=== PATIENT | female | born 1985 | race Two or more races ===

== ENCOUNTER → 2018-05-12 | Emergency (ER) | payer OTHER ==
[~2018-05-12] VITALS: Ht 160 cm; Wt 84.8 kg
[~2018-05-12] MED LIST: TENCON 50-3251 EACH PO
== END | disposition home or self-care (01) ==
LOC: ER 23:34
DX: G43.909 Migraine, unspecified, not intractable, without status migrainosus (principal)

== ENCOUNTER 2018-06-28 15:24 | Outpatient (CLI) | payer OTHER | END 2018-06-28 15:29 | disposition home or self-care (01) | LOC: RAD 15:24 | DX: M54.5 Low back pain (principal) ==

== ENCOUNTER → 2019-03-29 | Outpatient (CLI) | payer OTHER | END | disposition home or self-care (01) | LOC: RAD 15:40 | DX: M54.5 Low back pain (principal) ==

== ENCOUNTER 2019-12-09 19:29 | Emergency (ER) | payer OTHER ==
[~2019-12-09] VITALS: Ht 160 cm; Wt 82.6 kg
== END 2019-12-09 22:17 | disposition home or self-care (01) ==
LOC: ER 19:29
DX: S60.221A Contusion of right hand, initial encounter (principal); W10.8XXA Fall (on) (from) other stairs and steps, initial encounter; Y93.89 Activity, other specified; Y92.488 Other paved roadways as the place of occurrence of the external cause; Y99.8 Other external cause status

== ENCOUNTER 2020-01-02 15:31 | Outpatient (CLI) | payer OTHER | END 2020-01-02 15:38 | disposition home or self-care (01) | LOC: RAD 15:31 | PROVIDERS: ATTEND Orthopaedic Surgery | DX: S60.221D Contusion of right hand, subsequent encounter (principal) ==

== ENCOUNTER → 2020-05-22 | Outpatient (CLI) | payer OTHER | END | disposition home or self-care (01) | LOC: RAD 12:00 | PROVIDERS: ATTEND General Practice | DX: M77.31 Calcaneal spur, right foot (principal); M54.5 Low back pain; M25.571 Pain in right ankle and joints of right foot ==

== ENCOUNTER 2021-02-17 17:17 | Emergency (ER) | payer OTHER ==
[~2021-02-17] VITALS: Ht 160 cm; Wt 78.9 kg
[2021-02-17] MEDS ORDERED: MEDROLPACK PO (18:54)
[2021-02-17] MEDS ORDERED: NORFLEX100MG PO (18:54)
[2021-02-17] MEDS ORDERED: CELEBREX200MG PO (18:54)
== END 2021-02-17 19:05 | disposition home or self-care (01) ==
LOC: ER 17:17
DX: M54.5 Low back pain (principal)

== ENCOUNTER 2022-09-03 20:31 | Emergency (ER) | payer OTHER ==
[~2022-09-03] VITALS: Ht 160 cm; Wt 81.6 kg
[~2022-09-03 20:31] MED LIST changes: +CELEBREX200MG PO; +MEDROLPACK PO; +NORFLEX100MG PO
[2022-09-03] MEDS ORDERED: DICLOFENAC SODI75 MG PO (21:24)
[2022-09-03] MEDS ORDERED: MEDROLPACK PO (21:24)
[2022-09-03] MEDS ORDERED: NORFLEX100MG PO (21:24)
== END 2022-09-03 22:01 | disposition home or self-care (01) ==
LOC: ER 20:31
DX: M54.59 Other low back pain (principal); M54.9 Dorsalgia, unspecified

== ENCOUNTER 2022-09-11 03:19 | Emergency (ER) | payer OTHER ==
[~2022-09-11] VITALS: Ht 160 cm; Wt 81.6 kg
[~2022-09-11 03:19] MED LIST changes: +DICLOFENAC SODI75 MG PO
== END 2022-09-11 08:59 | disposition home or self-care (01) ==
LOC: ER 03:19
DX: M54.59 Other low back pain (principal)

== ENCOUNTER 2023-04-11 15:09 | Emergency (ER) | payer OTHER ==
[~2023-04-11] VITALS: Ht 160 cm; Wt 85.3 kg
== END 2023-04-11 17:58 | disposition home or self-care (01) ==
LOC: ER 15:09
DX: M54.30 Sciatica, unspecified side (principal)

== ENCOUNTER 2023-06-04 15:07 | Emergency (ER) | payer OTHER ==
[~2023-06-04] VITALS: Ht 162.6 cm; Wt 68.0 kg
[2023-06-04 18:17] LABS: HEMATOCRIT 36.4 % (36.0-45.00); HEMOGLOBIN 12.1 g/dL (12.0-15.00); MEAN CELL VOLUME 74.7 fL (80.00-100.00); MEAN CORPUSCULAR HEMOGLOBIN 24.9 pg (27.00-32.0); MEAN CORPUSCULAR HGB CONC 33.3 g/dl (32.0-36.0); PLATELET COUNT 282 K/uL (150-450); RED BLOOD COUNT 4.87 M/uL (4.00-6.00); RED CELL DISTRIBUTION WIDTH 16.4 % (11.5-14.5)
[2023-06-04 18:49] LABS: ALBUMIN 3.7 gm/dL (3.4-5.0); BILIRUBIN TOTAL 0.29 mg/dL (0.3-1.2); CALCIUM 9.2 mg/dL (8.5-10.1); CREATININE SERUM 0.78 mg/dL (0.55-1.02); GFR 83.57; GLOBULINA 4.7 G/DL (2.4-3.5); POTASSIUM 3.07 mEq/L (3.5-5.1); TOTAL PROTEIN 8.4 gm/dL (6.4-8.2)
[2023-06-04 19:12] LABS: URINE APPEARANCE Clear; URINE BILIRRUBIN Negative (NEGATIVE); URINE BLOOD Small; URINE COLOR Yellow; URINE GLUCOSE Negative (NEGATIVE); URINE LEUKOCYTE Trace; URINE NITRATE Negative; URINE PROTEIN Negative (NEGATIVE)
[2023-06-04 19:16] LABS: URINE BACTERIA 574.3 uL (0.0-1933); URINE EPITHELIAL CELLS 6.3 uL (0.0-38.8); URINE RBC 14.6 uL (0.0-20.8); URINE WBC 17.4 uL (0.0-23.2)
== END 2023-06-04 21:15 | disposition home or self-care (01) ==
LOC: ER 15:08
PROVIDERS: General Practice
DX: B34.9 Viral infection, unspecified (principal); Z20.822 Contact with and (suspected) exposure to COVID-19; M54.31 Sciatica, right side; M62.830 Muscle spasm of back

== ENCOUNTER 2023-06-21 09:10 | Emergency (ER) | payer OTHER ==
[~2023-06-21] VITALS: Ht 160 cm; Wt 84.8 kg
== END 2023-06-21 13:00 | disposition home or self-care (01) ==
LOC: ER 09:10
DX: M54.9 Dorsalgia, unspecified (principal); M62.838 Other muscle spasm

== ENCOUNTER 2023-07-14 22:49 | Emergency (ER) | payer OTHER ==
[~2023-07-14] VITALS: Ht 160 cm; Wt 84.8 kg
[2023-07-15] MEDS ORDERED: ORPHENADRINE CITRATE 30 MG/ML AMPUL IV STA (01:36)
[2023-07-15] MEDS ORDERED: METHYLPREDNISOLONE SOD SUCC 125 MG VIAL IV STA (01:36)
[2023-07-15] MEDS ORDERED: KETOROLAC TROMETHAMINE 30 MG VIAL IV STA (01:36)
[2023-07-15] MEDS ORDERED: NORFLEX100MG PO (04:27)
[2023-07-15] MEDS ORDERED: DICLOFENAC SOD100 MG PO (04:27)
== END 2023-07-15 04:35 ==
LOC: ER
DX: M54.59 Other low back pain (principal); M51.16 Intervertebral disc disorders with radiculopathy, lumbar region